=== PATIENT | female | born 1960 | race Caucasian/White ===

== ENCOUNTER → 2016-05-07 | Outpatient (CLI) | payer BC ==
--- NOTE | 2016-05-07 16:19 | DI ---
XR FOOT COMPLETE MIN 3VW WB,05/07/2016 2:06 PM: Clinical History: Right foot pain. Previous Exam: February 21, 2016 Findings: Weightbearing 3 views of the right foot are obtained, and demonstrate postsurgical changes consistent with osteotomies of the distal second and third proximal phalanges. There are stable fusion device is noted. There is no fracture. There has been decreased swelling. Impression: Improvement in soft tissue swelling otherwise unremarkable.
== END ==
LOC: MOB RAD 14:07
PROVIDERS: ATTEND Podiatrist Foot & Ankle Surgery
DX: Z47.89 Encounter for other orthopedic aftercare (principal); M79.671 Pain in right foot; Z98.1 Arthrodesis status
CPT/HCPCS: 73630

== ENCOUNTER → 2016-05-26 | Outpatient (CLI) | payer BC ==
[2016-05-26 09:52] LABS: BLOOD UREA NITROGEN 14 mg/dL (7-22); BUN/CREATININE RATIO 23.33 (6-20); CALCIUM 9.7 mg/dL (8.7-10.7); CHLORIDE 108 meq/L (98-112); CREATININE 0.6 mg/dL (0.50-1.20); EST GLOMERULAR FILTRATION > 60 (>60 ml/min/1.73m(2)); GLUCOSE 74 mg/dL (78-110); PHOSPHORUS 2.9 mg/dl (2.4-4.3); POTASSIUM 3.9 meq/L (3.8-5.2); SODIUM 143 meq/L (135-145)
== END ==
LOC: LAB 09:26
PROVIDERS: ATTEND Family Medicine
DX: M81.0 Age-related osteoporosis without current pathological fracture (principal)
CPT/HCPCS: 36415; 80048; 83735; 84100

== ENCOUNTER → 2016-07-16 | Outpatient (CLI) | payer BC ==
[2016-07-16 06:43] LABS: BASOPHILS # (AUTO) 0.03 10*3/UL; BASOPHILS % (AUTO) 0.6 % (0-1); EOSINOPHILS % (AUTO) 1.9 % (0-8); HEMATOCRIT 40.8 % (37.0-47.0); HEMOGLOBIN 13.9 g/dL (12.0-16.0); LYMPHOCYTES # (AUTO) 1.86 10*3/uL; MEAN CORPUSCULAR HEMOGLOBIN 31.8 PG (27-31); MEAN CORPUSCULAR HGB CONC 34.1 g/dL (33-37); MEAN CORPUSCULAR VOLUME 93.4 FL (81-99); MEAN PLATELET VOLUME 9.5 FL (7.4-12.2); MONOCYTES # (AUTO) 0.46 10*3/UL (0.3-0.8); MONOCYTES % (AUTO) 8.9 % (5-15); NEUTROPHILS # (AUTO) 2.73 10*3/UL; NEUTROPHILS % (AUTO) 52.6 % (50-80); RED BLOOD COUNT 4.37 10^6/uL (4.20-5.40)
[2016-07-16 06:56] LABS: BLOOD UREA NITROGEN 15 mg/dL (7-22); CALCIUM 9.5 mg/dL (8.7-10.7); CHOL/HDL RATIO 3.16 RATIO (0-4.0); EST GLOMERULAR FILTRATION > 60 (>60 ml/min/1.73m(2)); HDL CHOLESTEROL 56 mg/dL (40-150); PHOSPHORUS 3.5 mg/dl (2.4-4.3); SERUM ALBUMIN 4.3 g/dL (3.5-4.8); SERUM CHOLESTEROL 177 mg/dL (120-200)
[2016-07-16 06:56] LABS: PLATELET MORPHOLOGY COMMENT NORMAL MORPHOLOGY (NORM); RBC MORPHOLOGY COMMENT NORMAL MORPHOLOGY (NORM); WBC MORPHOLOGY COMMENT NORMAL MORPHOLOGY (NORM)
[2016-07-16 07:13] LABS: HEMOGLOBIN A1C 5.09 % (4.2-6.0)
[2016-07-16 16:32] LABS: FREE T4 (FREE THYROXINE) 1.29 ng/dL (0.93-1.71)
== END ==
LOC: LAB 06:31
PROVIDERS: ATTEND Family Medicine
DX: E03.9 Hypothyroidism, unspecified (principal); E78.1 Pure hyperglyceridemia; K21.9 Gastro-esophageal reflux disease without esophagitis; K57.33 Diverticulitis of large intestine without perforation or abscess with bleeding; Z01.89 Encounter for other specified special examinations; M81.0 Age-related osteoporosis without current pathological fracture; R79.0 Abnormal level of blood mineral; F17.200 Nicotine dependence, unspecified, uncomplicated
CPT/HCPCS: 36415; 80053; 80061; 82306; 82728; 83036; 83540; 83550; 83735; 84100; 84439; 84443; 85025

== ENCOUNTER → 2016-08-06 | Outpatient (CLI) | payer BC ==
--- NOTE | 2016-08-06 11:51 | DI ---
XR FOOT COMPLETE MIN 3VW WB,08/06/2016 9:06 AM: Clinical History: Injury of left foot Previous Exam: None at this facility. Findings: 3 views of the left foot are obtained, and demonstrate mild degenerative changes of the first metatar sophalangeal joint. There is in these up the noted at the insertion of the plantar fascia and the Achilles tendon. Impression: Mild degenerative changes of the left first metatarsophalangeal joint otherwise unremarkable.
== END ==
LOC: MOB LAB 09:11
PROVIDERS: ATTEND Podiatrist Foot & Ankle Surgery
DX: S99.922A Unspecified injury of left foot, initial encounter (principal); M79.672 Pain in left foot; W20.8XXA Other cause of strike by thrown, projected or falling object, initial encounter; Y93.89 Activity, other specified
CPT/HCPCS: 73630

== ENCOUNTER 2016-09-23 10:55 | Emergency (ER) | payer BC ==
[2016-09-23] MEDS ORDERED: Sodium Chloride 0.9% 1,000 ML PRIMARY IV ONE (11:18)
[2016-09-23] MEDS ORDERED: NORMAL SALINE 10 ML SYRINGE FLUSH IVP PRN (11:18)
[2016-09-23] MEDS ORDERED: ONDANSETRON 4 MG/2 ML VIAL IVP ONE (11:18)
[2016-09-23] MEDS ORDERED: HYDROmorphone 2 MG/1 ML IVP ONE (11:19)
[2016-09-23 11:24] LABS: BASOPHILS # (AUTO) 0.06 10*3/UL; BASOPHILS % (AUTO) 1.1 % (0-1); EOSINOPHILS % (AUTO) 1.8 % (0-8); HEMATOCRIT 37.5 % (37.0-47.0); HEMOGLOBIN 12.6 g/dL (12.0-16.0); LYMPHOCYTES # (AUTO) 2.23 10*3/uL; MEAN CORPUSCULAR HEMOGLOBIN 31.5 PG (27-31); MEAN CORPUSCULAR HGB CONC 33.6 g/dL (33-37); MEAN CORPUSCULAR VOLUME 93.8 FL (81-99); MEAN PLATELET VOLUME 9.8 FL (7.4-12.2); MONOCYTES # (AUTO) 0.52 10*3/UL (0.3-0.8); MONOCYTES % (AUTO) 9.5 % (5-15); NEUTROPHILS # (AUTO) 2.55 10*3/UL; NEUTROPHILS % (AUTO) 46.6 % (50-80)
[2016-09-23 11:35] LABS: BLOOD UREA NITROGEN 14 mg/dL (7-22); BUN/CREATININE RATIO 23.33 (6-20); C-REACTIVE PROTEIN < 0.5 mg/dL (0.0-0.9); EST GLOMERULAR FILTRATION > 60 (>60 ml/min/1.73m(2)); LIPASE 113 IU/L (23-300); SERUM ALBUMIN 4.3 g/dL (3.5-4.8)
[2016-09-23 12:05] LABS: PLATELET MORPHOLOGY COMMENT NORMAL MORPHOLOGY (NORM); RBC MORPHOLOGY COMMENT NORMAL MORPHOLOGY (NORM); WBC MORPHOLOGY COMMENT NORMAL MORPHOLOGY (NORM)
[2016-09-23 12:54] VITALS: TEMP 96.6
--- NOTE | 2016-09-23 13:37 | DI ---
CT ABDOMEN SCAN WITH IV CONTRAST, 09/23/2016 11:18 AM : Clinical History: Abdominal pain. Previous Exam: None at this facility. Scans are performed from the lower lung bases through the liver and kidneys with IV contrast. 75 ml o f Isovue 300 was injected IV. No oral or rectal contrast was ordered. The lung bases are clear. The liver is normal. The gallbladder is grossly normal. There is no abnorma lity of the spleen, pancreas, and adrenal glands. Both kidneys are normal in size, shape, position an d contour. There is no hydronephrosis or hydroureter. No renal or ureteral calculi are present. There are no abnormal retrocrural or periaortic nodes. No ascites is present. READING: Normal CT abdomen scan. CT PELVIS SCAN WITH IV CONTRAST, 09/23/2016 11:18 AM: Clinical History: See above. Previous Exam: None at this facility. Scans are performed from just superior to the umbilicus to the symphysis pubis with IV contrast. This is the same bolus of contrast used for the CT scans of the abdomen. Scans through the lower abdomen and pelvis show no masses or abnormal fluid collections. There is no adenopathy. The appendix is normal. The small bowel, terminal ileum, and ileocecal valve are normal. The colon is also normal. There is a small umbilical hernia through which only mesenteric fat has her niated. The patient is status post hysterectomy and bilateral salpingo-oophorectomy. READING: Normal CT scan of the pelvis.
[2016-09-23 14:20] VITALS: RESP 14
--- NOTE | 2016-09-23 16:41 | PDOC ---
Abdomen/Flank HPI - General Chief Complaint: Abdomen Pain Stated Complaint: ABDOMINAL PAIN Date Seen by Provider: 09/23/16 Time Seen by Provider: 11:15 Source: POSITIVE: Patient Exam Limitations: POSITIVE: No limitations Nurse's Notes Reviewed & Considered: Yes - History of Present Illness Initial Comments: The patient is a 56-year-old male who presents to the emergency department with sudden onset of left lower quadrant abdominal pain. 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 This pain gradually intensified to the point where it is now a 9 or 10 out of 10. She has associated nausea however has not had any emesis yet. She was not having any pain prior to onset 20 minutes ago. She denies any urinary symptoms or recent change in bowel movements. She does have a history of diverticulitis for which she was hospitalized one year ago. She states that her current pain is similar to that. She has had previous hysterectomy/bilateral oophorectomy and denies any other abdominal surgeries. She did have a colonoscopy about a year ago as well. - Patient Home Medications Home Medications: Home Medications Calcium Carbonate/Vitamin D3 [Calcium 600 + Vit D 200 Tablet] 1 tab PO BID tab 08/14/14 Denosumab [Prolia] 60 mg SUBCUT Every 6 months #1 ml 11/08/15 Acetaminophen [Tylenol] 500 mg PO TID PRN tab 01/16/16 Ibuprofen 1 tab PO QID #30 tab 01/30/16 Ergocalciferol (Vitamin D2) [Vitamin D2] 1 cap PO 2XW #16 cap 07/21/16 Amoxicill/Clav 875/125mg [Augmentin 875/125mg] 1 each PO BID #14 tablet HYDROcodone/APAP 5/325 Tab [[place] 5/325 Tab] 1 each PO Q6H PRN #10 tablet Ondansetron [Zofran Odt] 8 mg PO Q6H PRN #6 tab.rapdis 09/23/16 - Patient Allergies Allergies/Adverse Reactions: Allergies Allergy/AdvReac Type Severity Reaction Status Date / Time morphine Allergy Severe HEADACHE Verified 09/23/16 11:10 Past Medical History - heen HEENT History: Denies History Cardiovascular History: Denies History Respiratory History: Other (please comment) Additional Respiratory History: PLEURISY NOT IN YEARS Gastrointestinal History: Denies History Genitourinary History: Denies History Endocrine History: Denies History Musculoskeletal History: Arthritis, Osteoporosis, Back Pain, Joint Pain Prosthesis or Implant: Yes (RIGHT KNEE SCREWS) Additional Musculoskeletal History: RIGHT FOOT PAIN Neurological History: Migraines Blood Disorders: Denies History Psychiatric History: Anxiety Disorders History of Sexually Transmitted Diseases: No Female Reproductive History: Denies History Obstetrical History: Denies History Cancer History: Denies History In Past Year Been Physically Harmed or Verbally Threatened: No History of MDRO: No History of Other Communicable Diseases: No Tobacco Use: Current Every Day Smoker Alcohol Use: None Substance Use Type: None Previous Surgical History: Yes Type / Date of Surgery: BILAT OOPHORECTOMY/C SECTION/ HYSTERECTOMY, BILAT CARPAL TUNNEL, ULNAR NERVER RELEASE, BILAT ELBOWS/COLONOSCOPY/RIGHT KNEE SCOPE X 2/ LEFT FOOT SURGERY Anesthesia Reactions: No Malignant Hyperthermia: No Significant Family History: COPD, Hypertension Past Medical History Reviewed: Reviewed - No Changes ROS - Limitations ROS Limitations: No Limitations Constitution: DENIES: Chills, Fever Cardiovascular: REPORTS: Denies Cardiac Symptoms Respiratory: REPORTS: Denies Resp Symptoms Neurological: REPORTS: Denies Neuro Symptoms Gastrointestinal: REPORTS: Abdominal Pain, Nausea. DENIES: Vomitting, Diarrhea , Black Stools, Bloody Stools, Constipation Musculoskeletal: REPORTS: Denies MS Symptoms Genitourinary: REPORTS: Denies Symptoms Eyes: REPORTS: Denies Symptoms ENT: REPORTS: Denies Symptoms Skin: DENIES: Rash Abdominal/Flank Pain PE - General Appearance General Appearance: POSITIVE: Alert, Cooperative, No Acute Distress, Other (She appears to be in pain) - HEENT HEENT: POSITIVE: Head Inspection Nml, Eyes Inspection Nml, Ears Inspection Nml - Neck Neck: POSITIVE: Normal Inspection - Respiratory Respiratory: POSITIVE: No Respiratory Distress, Breath Sounds Normal - Cardiovascular Cardiovascular: POSITIVE: Regular Rate and Rhythm, Heart Sounds Normal - Abdomen Abdomen: Soft: (All Quadrants), Normal Bowel Sounds: (All Quadrants), No Guarding: (All Quadrants), No Rebound: (All Quadrants) Additional Abdominal Details: She does have tenderness primarily in the left lower quadrant without guarding or rebound tenderness, no palpable mass, no CVA tenderness - Back Back: NEGATIVE: CVA Tenderness (L) - Skin Skin: POSITIVE: Intact, No Rash - Extremities Extremity: Normal Inspection: (All Extremities) Abdomen Progress - Results Reviewed by me Xrays/CTs/US Reviewed by me: Yes Discussed with Radiologist: Yes Radiology Findings: CT scan of the abdomen and pelvis reveals no acute findings per radiologist. Lab Results Reviewed: Yes Lab Results:: Laboratory Results 09/23/16 Range/Units 11:21 WBC 5.47 (4.8-10.8) 10^3/uL RBC 4.00 L (4.20-5.40) 10^6/uL Hgb 12.6 (12.0-16.0) g/dL Hct 37.5 (37.0-47.0) % MCV 93.8 (81-99) FL MCH 31.5 H (27-31) PG MCHC 33.6 (33-37) g/dL RDW Std Deviation 44.2 (39-50) fL RDW Coeff of Dorie 13.3 (11.5-14.5) % Plt Count 276 (140-350) 10*3/uL MPV 9.8 (7.4-12.2) FL Immature Gran % (Auto) 0.2 (0-5) % Neut % (Auto) 46.6 L (50-80) % Lymph % (Auto) 40.8 (10-50) % [place] % (Auto) 9.5 (5-15) % Eos % (Auto) 1.8 (0-8) % Baso % (Auto) 1.1 H (0-1) % Immature Gran # (Auto) 0.01 10*3/UL Neut # (Auto) 2.55 10*3/UL Lymph # (Auto) 2.23 10*3/uL [place] # (Auto) 0.52 (0.3-0.8) 10*3/UL Eos # (Auto) 0.10 10*3/UL Baso # (Auto) 0.06 10*3/UL WBC Morphology Comment Normal morphology (NORM) Plt Morphology Comment Normal morphology (NORM) RBC Morph Comment Normal morphology (NORM) Sodium 140 (135-145) meq/L Potassium 4.0 (3.8-5.2) meq/L Chloride 108 (98-112) meq/L Carbon Dioxide 23 (23-33) meq/L Anion Gap 9 (5-20) BUN 14 (7-22) mg/dL Creatinine 0.6 (0.50-1.20) mg/dL Estimated GFR > 60 (>60 ml/min/1.73m(2)) BUN/Creatinine Ratio 23.33 H (6-20) Glucose 86 (78-110) mg/dL Calculated Osmolality 289.0 (267-292) mOsm/kg Calcium 9.0 (8.7-10.7) mg/dL Total Bilirubin 0.6 (0.3-1.2) mg/dL AST 40 H (8-39) IU/L ALT 27 (9-52) IU/L Alkaline Phosphatase 41 (38-126) IU/L C-Reactive Protein < 0.5 (0.0-0.9) mg/dL Total Protein 6.9 (6.1-8.0) g/dL Albumin 4.3 (3.5-4.8) g/dL Globulin 2.6 (2.50-4.10) g/dL Albumin/Globulin Ratio 1.60 (1.3-2.0) mg/g Amylase 86 (30-110) U/L Lipase 113 (23-300) IU/L - Patient's Progress MDM / ED Course: On arrival the patient appeared quite uncomfortable rating her pain a 9 or 10 out of 10. She is allergic to morphine and received Dilaudid 1 mg IV as well as Zofran 4 mg IV. She had significant relief in pain. Her blood work is all essentially unremarkable and her CT scan shows no obvious acute findings per radiologist. She does present with left lower quadrant abdominal pain that is similar to pain she had associated with diverticulitis a year ago. Decision was made to treat her empirically for early diverticulitis with Augmentin 875 mg twice a day for 7 days. In addition she was given #10 [place] which she can take as needed for pain and was given Zofran as needed for nausea. She is advised return to the emergency room if she develops increased pain, vomiting or dehydration, fever, any worsening or change in symptoms. She is advised follow-up with primary care in 5-7 days. For the next 2 days. - Consult Counseled: POSITIVE: Patient, RE: Lab Results, RE: Radiology Results, RE: DX, RE : Need for F/U Patient Care Time - Estimated PCT Patient Care Time (In Minutes): 30 Vital Signs - Recent Vital Signs Vital Signs: Vital Signs (Last 8 hours) Temp Pulse Pulse Resp BP BP Pulse Ox 09/23/16 14:18 71 14 97/47 97 09/23/16 11:14 96.6 F L 78 20 108/86 95 - VS Reviewed Vital Signs Reviewed: Yes Discharge Clinical Impression: Abdominal pain Discharge Disposition: Discharged to Home Condition: Stable Prescriptions / Orders: Amoxicill/Clav 875/125mg [Augmentin 875/125mg] 1 each PO BID #14 tablet HYDROcodone/APAP 5/325 Tab [[place] 5/325 Tab] 1 each PO Q6H PRN #10 tablet PRN Reason: Pain Ondansetron [Zofran Odt] 8 mg PO Q6H PRN #6 tab.rapdis PRN Reason: Nausea / Vomiting Patient Instructions Given at Discharge: Acute Abdominal Pain (ED) Additional Instructions: The CAT scan of your abdomen did not show any obvious reason for your pain. There is no sign of obvious diverticulitis or bowel obstruction in your appendix appears normal. Your blood work was also essentially normal. It is still possible that this could be an early diverticulitis similar to last year. Because of this you have been started on antibiotics (Augmentin 875 mg twice a day for 7 days). In addition you been prescribed [place] 5/325 which he can take one every 6 hours as needed for pain. You are also given Zofran 8 mg every 6 hours as needed for nausea. Recommend bland diet for the next 24-48 hours. Return to the emergency room if increased pain, vomiting or dehydration , fever, any worsening or change in symptoms. Recommend follow-up with Dr. Carbajal in 5-7 days. Follow Up With: ELEANOR CARBAJAL [Primary Care Provider] -
== END 2016-09-23 13:06 | disposition home or self-care (01) ==
LOC: ER 10:55
DX: R10.32 Left lower quadrant pain (principal); R11.0 Nausea
CPT/HCPCS: 74177; 80053; 82150; 83690; 85025; 86140; 96374; 96375; 99283; J1170; J2405

== ENCOUNTER → 2016-10-29 | Outpatient (REF) | payer BC ==
--- NOTE | 2016-10-29 10:24 | DI ---
Clinical History: Annual Screening Previous Exam: October 29, 2015 Findings: CC and MLO views of both breasts are obtained, and demonstrate predominantly fatty replaced breast pa renchyma. Computer aided diagnostics were applied. There is no mass, suspicious cluster of microcalcifications nor areas of architectural distortion. Impression: Normal Mammogram BIRADS: 1: Negative mammogram Recommendations: Annual screening. Note: Breast examination has been discussed and encouraged, and the patient informed to return if the re is any new palpable abnormality in the interval between screening. Overall imaging assessment: Negative mammogram.
== END ==
LOC: MAMMO 08:25
PROVIDERS: ATTEND Family Medicine
DX: Z12.31 Encounter for screening mammogram for malignant neoplasm of breast (principal)
CPT/HCPCS: G0202

== ENCOUNTER 2017-01-25 10:01 | Observation (INO) ==
[2017-01-25] MEDS ORDERED: NORMAL SALINE 10 ML SYRINGE FLUSH IVP PRN ×2 (10:17→12:28)
--- NOTE | 2017-01-25 10:20 | EKG ---
[address] [address] Measurements Intervals [place] Rate: 85 P: 82 NM: 158 QRS: 68 QRSD: 89 T: 65 QT: 354 QTc: 396 Interpretive Statements SINUS RHYTHM Compared to ECG 02/11/2016 10:33:39 No significant changes Electronically Signed On 01-27-17 08:22:22 MST by Rl Campos MD [email or web address]
[2017-01-25] MEDS: Sodium Chloride 0.9% 1,000 ML PRIMARY IV ONE ×2 (10:22→12:45)
[2017-01-25 10:23] LABS: BASOPHILS # (AUTO) 0.03 10*3/UL; BASOPHILS % (AUTO) 0.5 % (0-1); EOSINOPHILS % (AUTO) 1.6 % (0-8); Hemoglobin [HGB] 14.2 g/dL (12.0-16.0); LYMPHOCYTES # (AUTO) 2.42 10*3/uL; MEAN CORPUSCULAR HEMOGLOBIN 31.9 PG (27-31); MEAN CORPUSCULAR HGB CONC 33.8 g/dL (33-37); MEAN CORPUSCULAR VOLUME 94.4 FL (81-99); MEAN PLATELET VOLUME 10.2 FL (7.4-12.2); NEUTROPHILS # (AUTO) 3.21 10*3/UL; NEUTROPHILS % (AUTO) 51.1 % (50-80); RED BLOOD COUNT 4.45 10^6/uL (4.20-5.40)
[2017-01-25] MEDS: ASPIRIN 81 MG (BABY) CHEWABLE TABLET PO ONE ×2 (10:25→12:46)
[2017-01-25] MEDS: NITROGLYCERIN 0.4 MG SL TAB (BOTTLE OF 3) SL PRN ×2 (10:27→11:23)
[2017-01-25 10:28] LABS: PLATELET MORPHOLOGY COMMENT NORMAL MORPHOLOGY (NORM); RBC MORPHOLOGY COMMENT NORMAL MORPHOLOGY (NORM); WBC MORPHOLOGY COMMENT NORMAL MORPHOLOGY (NORM)
[2017-01-25 10:29] LABS: BLOOD UREA NITROGEN 14 mg/dL (7-22); BUN/CREATININE RATIO 23.33 (6-20); SERUM ALBUMIN 4.7 g/dL (3.5-4.8)
--- NOTE | 2017-01-25 10:52 | DI ---
AP CHEST X-RAY, 01/25/2017 10:17 AM : Clinical History: Chest Pain. Previous Exam: 09/05/2011. There is no acute soft tissue or bony abnormality. Heart size is normal. There is no acute infiltrate or effusion. There are linear densities emanating from the right hilum and extending superiorly into the right upper lobe consistent with fibronodular stranding secondary to old inflammatory disease. T his was present on the previous study and has not changed. The right hilum is retracted slightly supe riorly secondary to this inflammatory change. The gerda and mediastinal structures are otherwise tal l. There are no pulmonary nodules. Readin. There is no acute infiltrate or effusion. 2. Old inflammatory disease involving the right upper lobe.
--- NOTE | 2017-01-25 11:33 | PDOC ---
HPI - History of Present Illness History of Present Illness: This very nice 56-year-old female who started having chest pain early this morning she does have a history of smoking but no previous coronary artery disease. Chest pain is resolved now to be admitted to rule out patient says she is very stressed out lately she has to go on vacation to the [facility] but has taken care of to grandkids which is she is trying to find babysitting help for pain does not radiate to arm jaw or neck but it feels tight. Past Medical History Medical History: Nothing of significance Surgical History: 1. History of previous hysterectomy for abnormal vagina bleeding. 2. History of knee surgeries before. 3 history of carpal tunnel surgeries Pertinent Family History: History of COPD, hypertension Tobacco Use: Current Every Day Smoker In the Past 12 Months, Have Used or Abuse Any of the Following Substance: None Medication / Allergies Home Medications: Home Medications Medication Instructions Recorded Confirmed Type Calcium Carbonate/Vitamin D3 1 tab PO BID tab 08/14/14 01/25/17 History [Calcium 600 + Vit D 200 Tablet] Denosumab [Prolia] 60 mg SUBCUT Every 6 months #1 ml 11/08/15 01/25/17 History Acetaminophen [Tylenol] 500 mg PO TID PRN tab 01/16/16 01/25/17 History Ibuprofen 1 tab PO QID #30 tab 01/30/16 01/25/17 Rx Ergocalciferol (Vitamin D2) 1 cap PO 2XW #16 cap 07/21/16 01/25/17 Rx [Vitamin D2] naproxen 500 mg tablet,delayed 500 mg PO BID PRN #60 tab 12/15/16 01/25/17 Rx release methylprednisolone 4 mg tablets in 1 dose pk PO PER PKG DIR #21 tab 12/29/1609/05 Rx a dose pack Allergies/Adverse Reactions: Allergies 3 Allergy/AdvReac Type Severity Reaction Status Date / Time morphine AdvReac Severe HEADACHE Verified 01/25/17 10:03 Review of Systems - Review of Systems All Systems: Reviewed & No Additional Complaints Except as Stated - Respiratory Respiratory: DENIES: Negative System Review, Cough, Sputum, Dyspnea At Rest, Dyspnea with Exertion, Pleuritic Pain, Hemoptysis, Wheezing, Other, See HPI - Cardiovascular Cardiovascular: REPORTS: Chest Pain - Gastrointestinal Gastrointestinal / Abdominal: DENIES: Negative System Review, Nausea, Vomiting, Diarrhea, Constipation, Abdominal Pain, Bloody Stool, Poor Appetite, Heartburn, Regurgitation, Bloating, Lactose Intolerance, Melena, Bright Red Blood per Rectum, Other, See HPI - Musculoskeletal Musculoskeletal: DENIES: Negative System Review, Back Pain, Neck Pain, Joint Swelling, Calf Pain, Muscle Pain, Cramping, Joint Pain - Hands, Joint Pain - Elbows, Joint Pain - Shoulders, Joint Pain - Hips, Joint Pain - Knees, Joint Pain - Feet, AM Stiffness, Other, See HPI - Psychiatric Psychiatric: REPORTS: Anxiety Exam - Vitals Vital Signs: Vital Signs Temperature 97.3 F Temperature Source Temporal Artery Scan Pulse Rate [Pulse Oximeter 101 Right] Respiratory Rate 20 Blood Pressure [Right Arm] 129/87 Pulse Ox 98 Oxygen Delivery Method Room Air Height 5 ft 2 in Weight 140 lb - General General Appearance: No Acute Distress, Cooperative - Head Head Exam: Normal Inspection, Normocephalic, Atraumatic - Eye Eye Exam: POSITIVE: Normal Appearance, PERRL, EOMI, No Scleral Icterus - Respiratory Respiratory Exam: POSITIVE: Clear to Auscultation - Bilaterally, Breathing Non Labored, Normal To Percussion, Normal to Percussion and Palpation - Cardiovascular Cardiovascular Exam: POSITIVE: RRR, No Murmur, No Clicks, No Gallops, No Rubs, PMI Non-Displaced - GI/Abdominal GI/Abdominal Exam: POSITIVE: Normal Bowel Sounds, Non Tender, Non Distended, Soft, No Masses, No Hepatomegaly, No Splenomegaly, No Organomegaly - Extremities Extremities Exam: POSITIVE: Normal Inspection, Full ROM, Normal Capillary Refill , No Clubbing Present, No Edema Present, No Cyanosis Present, Negative Radha's sign, Dosalis Pedis Pulses - Stong & Regular - Psychiatric Psychiatric Exam: POSITIVE: Normal Affect, Normal Mood, Anxious Results - Labs CBC and BMP: 01/25/17 10:21 01/25/17 10:21 Assessment and Plan - Patient Problems (1) Chest pain Current Visit: Yes Status: Acute Comment: I will order serial troponins and if negative Lexiscan stress test will be done repeat EKG and troponin are negative she did receive another nitroglycerin and pain is subsided Code(s): R07.9 - Chest pain, unspecified (2) Anxiety Current Visit: Yes Status: Acute Comment: When necessary Ativan Code(s): F41.9 - Anxiety disorder, unspecified
[2017-01-25] MEDS ORDERED: LORazepam 2 MG/1 ML VIAL IVP ONE (11:43)
--- NOTE | 2017-01-25 11:51 | PDOC ---
Chest Pain HPI - General Chief Complaint: Chest Pain Stated Complaint: CHEST PAIN Date Seen by Provider: 01/25/17 Time Seen by Provider: 10:03 Source: Patient Exam Limitations: POSITIVE: No limitations Treatment Prior to Arrival: REPORTS: None Nurse's Notes Reviewed & Considered: Yes - History of Present Illness Initial Comments: The patient is a 56-year-old female. She states that around 4 AM this morning she was getting ready for work after having just gotten out of bed, and she developed "chest pressure and tightness ". She describes the intensity of her chest pain as an 8 on a scale of 10. No radiation. She did states she had some associated nausea but no vomiting. No diaphoresis. No increase in pain with inspiration. No associated cough or fevers. Patient states she has no known history of cardiopulmonary problems. She's had a hysterectomy and some orthopedic surgery in the past. She smokes a half a pack of cigarettes per day and does not drink alcohol. Upon presentation to the emergency room at around 1003 she states that her symptoms are essentially unchanged. No history of previous episodes. She states that morphine makes her "feel yucky". She takes Naprosyn and Prilosec on a when necessary basis. She also takes calcium and Prolia twice a week. 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 Body Location Affected: REPORTS: Chest Timing: REPORTS: Constant Duration: 4-6 hours (Approximately 6 hours) Severity: Moderate Persistent/Worse since (date): 01/25/17 Persistent/Worse since (time): 04:00 Context: REPORTS: Activity (Just got out of bed and was getting ready for work) Quality: REPORTS: "Pain", Pressure, Other ("Tightness") Radiation: REPORTS: None Associated Symptoms: REPORTS: Nausea Modifying Factors: improves with: None Reported Similar Symptoms Previously: No Recently seen/treated/hospitalized: No Any Prior Injuries Related to Current Complaint?: No - Patient Home Medications Home Medications: Home Medications Calcium Carbonate/Vitamin D3 [Calcium 600 + Vit D 200 Tablet] 1 tab PO BID tab 08/14/14 Denosumab [Prolia] 60 mg SUBCUT Every 6 months #1 ml 11/08/15 Acetaminophen [Tylenol] 500 mg PO TID PRN tab 01/16/16 Ibuprofen 1 tab PO QID #30 tab 01/30/16 Ergocalciferol (Vitamin D2) [Vitamin D2] 1 cap PO 2XW #16 cap 07/21/16 naproxen 500 mg tablet,delayed release 500 mg PO BID PRN #60 tab 12/15/16 methylprednisolone 4 mg tablets in a dose pack 1 dose pk PO PER PKG DIR #21 tab 12/29/16 - Patient Allergies Allergies/Adverse Reactions: Allergies 3 Allergy/AdvReac Type Severity Reaction Status Date / Time morphine AdvReac Severe HEADACHE Verified 01/25/17 10:03 Past Medical History - heen HEENT History: Denies History Cardiovascular History: Denies History Respiratory History: Other (please comment) Additional Respiratory History: PLEURISY NOT IN YEARS Gastrointestinal History: Denies History Genitourinary History: Denies History Endocrine History: Denies History Musculoskeletal History: Arthritis, Osteoporosis, Back Pain, Joint Pain Prosthesis or Implant: Yes (RIGHT KNEE SCREWS) Additional Musculoskeletal History: RIGHT FOOT PAIN Neurological History: Migraines Blood Disorders: Denies History Psychiatric History: Anxiety Disorders History of Sexually Transmitted Diseases: No Cancer History: Denies History In Past Year Been Physically Harmed or Verbally Threatened: No History of MDRO: No History of Other Communicable Diseases: No Tobacco Use: Current Every Day Smoker Alcohol Use: None In the Past 12 Months, Have Used or Abuse Any Substance: None Previous Surgical History: Yes Type / Date of Surgery: BILAT OOPHORECTOMY/C SECTION/ HYSTERECTOMY, BILAT CARPAL TUNNEL, ULNAR NERVER RELEASE, BILAT ELBOWS/COLONOSCOPY/RIGHT KNEE SCOPE X 2/ LEFT FOOT SURGERY Anesthesia Reactions: No Malignant Hyperthermia: No Significant Family History: COPD, Hypertension Past Medical History Reviewed: Reviewed - No Changes ROS - Limitations ROS Limitations: No Limitations Constitution: REPORTS: Denies Symptoms Cardiovascular: REPORTS: Chest Pain Respiratory: REPORTS: Denies Resp Symptoms Neurological: REPORTS: Denies Neuro Symptoms Gastrointestinal: REPORTS: Denies GI Symptoms Endocrine: REPORTS: Denies Symptoms Musculoskeletal: REPORTS: Denies MS Symptoms Genitourinary: REPORTS: Denies Symptoms Eyes: REPORTS: Denies Symptoms ENT: REPORTS: Denies Symptoms Skin: REPORTS: Denies Skin Symptoms Lympathic: REPORTS: Denies Lympathic Symptoms Immunologic: POSITIVE: Denies Symptoms Psychiatric: POSITIVE: Denies Psych Symptoms Chest Pain PE - General Appearance General Appearance: REPORTS: Alert, Cooperative, No Acute Distress, No Evidence of Trauma - HEENT HEENT: POSITIVE: Head Inspection Nml, Eyes Inspection Nml, Ears Inspection Nml, Nose Inspection Nml, Oral/Dental Inspect. Nml, Pharynx Inspect. Nml, PERRL, EOMI - Neck Neck: REPORTS: Normal Inspection, No Carotid Bruit - Respiratory Respiratory: REPORTS: No Respiratory Distress, Breath Sounds Normal, Chest Non- Tender - Cardiovascular Cardiovascular: REPORTS: Regular Rate and Rhythm, Heart Sounds Normal, Equal Pulses, Strong Pulses, No Murmur, No Gallop, No Friction Rub, No JVD Peripheral Pulses: Radial (R): 2+, Radial (L): 2+ - Abdomen Abdomen: Soft: (All Quadrants), Normal Bowel Sounds: (All Quadrants), Denies Tenderness: (All Quadrants), No Splenomegaly: (All Quadrants), No Hepatomegaly: (All Quadrants), No Guarding: (All Quadrants), No Rebound: (All Quadrants), No Palpable Pulse: (All Quadrants), No Palpabale Mass: (All Quadrants), No Distention: (All Quadrants), No Rigidity: (All Quadrants) - Skin Skin: REPORTS: Intact, Normal For Race, Warm, Dry, No Rash - Extremities Extremity: Non-Tender: (All Extremities), Normal ROM: (All Extremities), Normal Inspection: (All Extremities) - Neurological / Psychological Neurological: POSITIVE: Oriented X3, harness 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 Lab Results Reviewed by Me: Yes (d-dimer negative, troponin negative) CBC and BMP: 01/25/17 10:21 01/25/17 10:21 EKG Interpreted/Reviewed By Me:: Yes (normal) EKG Interpretation:: POSITIVE: Normal Sinus Rhythm, Normal Rate, Normal Intervals, Normal Mereta, Normal QRS, Normal ST/T - Patient's Progress Pain Medication Addressed: POSITIVE: Yes (Patient given nitroglycerin 0.4 mg sublingual and patient reports that she has gotten good relief following this. Patient declines any other analgesia.) School/Work Release Addressed: POSITIVE: Not Applicable Re-Examine Time: 11:25 Re-Examine Comment: Patient comfortable in the emergency room. States chest pain is now minimal. Alternatives of treatment discussed with patient. Patient is admitted for further observation and evaluation and treatment as necessary. Status: POSITIVE: Improved, Re-Examined Quality Measure Initiative: CP/AMI: POSITIVE: EKG, ASA - Consult Consult (If Yes, Name of Consulting MD & Time Called): Yes (Dr. Zavala, hospitalist, [phone]) Consulting MD will see pt:: POSITIVE: [facility] Admit Counseled: POSITIVE: Patient, RE: Lab Results, RE: Radiology Results, RE: DX, RE : Need for F/U Patient Care Time - Estimated PCT Patient Care Time (In Minutes): 45 Vital Signs - Recent Vital Signs Vital Signs: Vital Signs (Last 8 hours) Temp Pulse Pulse Resp BP Pulse Ox 01/25/17 10:17 101 H 01/25/17 10:02 97.3 F 101 H 20 129/87 98 - VS Reviewed Vital Signs Reviewed: Yes Discharge Clinical Impression: Chest pain Discharge Disposition: Admit to Inpatient Condition: Fair Follow Up With: ELEANOR CARBAJAL [Primary Care Provider] - Date Decision to Admit to Inpatient: 01/25/17 Time Decision to Admit to Inpatient: 11:20
[2017-01-25] MEDS ORDERED: ACETAMINOPHEN 325 MG TABLET PO PRN (12:28)
[2017-01-25] MEDS ORDERED: CALCIUM CARBONATE 500 MG (TUMS) CHEWABLE TABLET PO PRN (12:28)
[2017-01-25] MEDS ORDERED: Non-Formulary Drug (Denosumab [Prolia] 60 MG) SUBCUT SCH (12:28)
[2017-01-25] MEDS ORDERED: ACETAMINOPHEN 325 MG TABLET PO SCH (12:28)
[2017-01-25] MEDS ORDERED: LIDOCAINE W/ SODIUM BICARB 0.5 ML SYR SUBD PRN (12:28)
[2017-01-25] MEDS ORDERED: NITROGLYCERIN 0.4 MG SL TAB (BOTTLE OF 3) SL PRN ×2 (13:26→13:30)
--- NOTE | 2017-01-25 13:42 | EKG ---
[address] [address] Measurements Intervals [place] Rate: 73 P: 84 VT: 189 QRS: 73 QRSD: 90 T: 109 QT: 405 QTc: 431 Interpretive Statements SINUS RHYTHM Compared to ECG 01/25/2017 10:11:16 No significant changes Electronically Signed On 01-27-17 08:23:01 MST by Rl Campos MD [email or web address]
[2017-01-25] MEDS ORDERED: LORazepam 1 MG TABLET PO ONE (15:45)
[2017-01-25] MEDS ORDERED: Sodium Chloride 0.9% 1,000 ML ONE (15:58)
[2017-01-25] MEDS: Calcium/Vit D 600mg/400u Tab 1 TAB TABLET PO SCH (20:11)
[2017-01-25] MEDS ORDERED: Sodium Chloride 0.9% 1,000 ML PRIMARY IV ONE (21:33)
[2017-01-26 06:54] LABS: BLOOD UREA NITROGEN 16 mg/dL (7-22); BUN/CREATININE RATIO 26.66 (6-20); CHOL/HDL RATIO 3.65 RATIO (0-4.0); SERUM ALBUMIN 3.3 g/dL (3.5-4.8); SERUM CHOLESTEROL 150 mg/dL (120-200)
[2017-01-26 07:00] VITALS: RESP 17
[2017-01-26] MEDS: Calcium/Vit D 600mg/400u Tab 1 TAB TABLET PO SCH (08:46)
[2017-01-26] MEDS ORDERED: ERGOCALCIFEROL 50,000 IU CAPSULE PO SCH (09:00)
--- NOTE | 2017-01-26 10:49 | STRESSTEST ---
[facility] Interpretive Statements This is a 56 YO female with family histoyr of CAD, smoker. presented with atypical chest pain. resting EKG NSR. ruled out for AK. [place] scan stress test done. stress component today. tolerated procedure well. Plan: images and review radiology report. [email or web address]
[2017-01-26 11:40] VITALS: BP 102/47; TEMP 97.5; O2SAT 95
--- NOTE | 2017-01-26 17:39 | DI ---
2 DAY LEXISCAN STRESS & REST MYOCARDIAL PERFUSION SCANS, 01/25/2017 12:28 PM : Clinical History: Chest pain. Smoker. Family history of coronary artery disease. Previous Exam: None at this facility. Monitoring Physician: Dr. Chris Salomon. Dose: Stress dose: 35 mCi on 01/26/2017. Rest dose: 36 mCi on 01/25/2017. Quantitative Analysis: [employer] program with low dose limited CT chest scan attenuation correctio n. Exam Quality: Excellent. Rejected Beats: Stress = 4%; Rest = 1%. HR: Stress = 56-79 b/m; Rest = 69-8 5 b/m. Left ventricular chamber sizes are normal at stress and rest. Transient ischemic dilatation ratio is 1.15 (normal Manuel TID <= 1.22; normal Lexiscan TID <= 1.33). Stress LVEF: 75%; rest LVEF: 76%. The n on-attenuated corrected stress and rest perfusion scans are normal. The attenuated corrected scans ar e also normal and show anatomic apical thinning. Stress and rest myocardial thickening and wall motio n are normal. Limited CT scans of the heart show calcifications in the proximal third of the LAD, the proximal portion of the left circumflex artery, and in the proximal half of the right coronary arter y. There are no lung nodules or enlarged nodes. Readin. Normal stress and rest left ventricular chamber size. Transient ischemic dilatation ratio is norm al at 1.15. 2. Normal stress and rest LVEF of 75%, and 76%, respectively. 3. Normal stress and rest myocardial perfusion, wall motion, and thickening. 4. Coronary artery disease manifested by loss calcifications in the proximal third of the LAD, the l eft circumflex artery, and the right coronary artery. No pulmonary nodules or adenopathy changes are identified.
--- NOTE | 2017-01-26 18:04 | DCSUMMARY ---
Hospitalization Summary Admit Date: 01/25/17 Discharge Date: 01/26/17 Primary Diagnosis:: atypical chest pain, likely anxiety related Hospital Course: This very pleasant 56-year-old female who has a known smoking history, half a pack per day, and family history of heart disease although it was beyond the age of 50. She does not have any hypertension, diabetes or cholesterol problems. Patient was admitted, chest pain resolved with some Ativan. Her troponins were negative and her cholesterol was well-controlled. She had a Lexiscan stress test done today. And it was negative for any stress or rest blood flow differences. However, there were some coronary calcifications in the left anterior descending, left circumflex artery, and right coronary artery. I did curbside cardiology on this, and they suggest that with nonocclusive coronary artery disease, the best thing to do his aspirin and statin therapy, albeit there is no evidence that statin therapy actually reduces coronary events in nonocclusive coronary artery disease. I discussed all this above with the patient, and she did have a history of a bleeding ulcer remotely, but it was fairly removed from today's history for the patient. I think she would benefit from enteric-coated aspirin daily, 81 mg. She does not really want to go on a statin at this time, but would like to continue diet control and I recommended retesting cholesterol in about 3 months. Overall, I think the best thing for this patient is to quit smoking and I discussed that with her. She will pick a quit date and go on a nicotine patch when she gets back from her vacation. No further complaints of chest pain, shortness breath, nausea or vomiting. Assessment and Plan: 1. As per discharge assessments noted 2. Disposition: Patient is discharged home. 3. Condition on discharge, stable and improved. 4. Diet: regular diet 5. Activities: resume normal activities, but quit smoking. 6. Follow-Up: 1. Dr. Shin in 1 week 7. Medications at the Time of Discharge: Home Medications Medication Instructions Recorded Confirmed Type Calcium Carbonate/Vitamin D3 1 tab PO BID tab 08/14/14 01/25/17 History [Calcium 600 + Vit D 200 Tablet] Denosumab [Prolia] 60 mg SUBCUT Every 6 months #1 ml 11/08/15 01/25/17 History Acetaminophen [Tylenol] 500 mg PO TID PRN tab 01/16/16 01/25/17 History Ibuprofen 1 tab PO QID #30 tab 01/30/16 01/25/17 Rx Ergocalciferol (Vitamin D2) 1 cap PO 2XW #16 cap 07/21/16 01/25/17 Rx [Vitamin D2] naproxen 500 mg tablet,delayed 500 mg PO BID PRN #60 tab 12/15/16 01/25/17 Rx release methylprednisolone 4 mg tablets in 1 dose pk PO PER PKG DIR #21 tab 12/29/1609/05 Rx a dose pack Aspirin EC 81 mg PO DAILY #30 tablet. 01/26/17 Rx Nicotine 14mg Patch [Nicoderm CQ 1 patch TD DAILY #20 patch 01/26/17 Rx 14mg Patch] 8. Time, care, counseling and coordination of care for this discharge is greater than 30 minutes. Exam - Vitals Vital Signs: Vital Signs Temperature 97.5 F Temperature Source Temporal Artery Scan Pulse Rate [Apical] 77 Pulse Rate [Pulse Oximeter 66 Right] Pulse Rate 64 Respiratory Rate 17 Blood Pressure [Right Arm] 102/47 Blood Pressure 99/64 Pulse Ox 95 Oxygen Delivery Method Room Air Height 5 ft 2 in Weight 145 lb 12.8 oz - General General Appearance: No Acute Distress, Cooperative - Head Head Exam: Normal Inspection, Normocephalic, Atraumatic - Eye Eye Exam: POSITIVE: No Scleral Icterus - Respiratory Respiratory Exam: POSITIVE: Clear to Auscultation - Bilaterally, Breathing Non Labored - Cardiovascular Cardiovascular Exam: POSITIVE: RRR, No Murmur, No Clicks, No Gallops, No Rubs, No JVD - GI/Abdominal GI/Abdominal Exam: POSITIVE: Normal Bowel Sounds, Non Tender, Non Distended, Soft - Extremities Extremities Exam: POSITIVE: No Clubbing Present, No Edema Present, No Cyanosis Present - Neurological Neurological Exam: POSITIVE: Alert, Oriented x 3, No Facial Droop, Speech Intact / Clear, Moves All Extremities Equally - Psychiatric Psychiatric Exam: POSITIVE: Normal Affect, Normal Mood, Anxious Data Perinent Studies: Laboratory Results 01/25/17 01/25/17 01/25/17 Range/Units 10:21 10:21 10:21 WBC 6.27 (4.8-10.8) 10^3/uL RBC 4.45 (4.20-5.40) 10^6/uL Hgb 14.2 (12.0-16.0) g/dL Hct 42.0 (37.0-47.0) % MCV 94.4 (81-99) FL MCH 31.9 H (27-31) PG MCHC 33.8 (33-37) g/dL RDW Std Deviation 44.0 (39-50) fL RDW Coeff of Dorie 13.1 (11.5-14.5) % Plt Count 282 (140-350) 10*3/uL MPV 10.2 (7.4-12.2) FL Immature Gran % (Auto) 0.2 (0-5) % Neut % (Auto) 51.1 (50-80) % Lymph % (Auto) 38.6 (10-50) % [place] % (Auto) 8.0 (5-15) % Eos % (Auto) 1.6 (0-8) % Baso % (Auto) 0.5 (0-1) % Immature Gran # (Auto) 0.01 10*3/UL Neut # (Auto) 3.21 10*3/UL Lymph # (Auto) 2.42 10*3/uL [place] # (Auto) 0.50 (0.3-0.8) 10*3/UL Eos # (Auto) 0.10 10*3/UL Baso # (Auto) 0.03 10*3/UL WBC Morphology Comment Normal morphology (NORM) Plt Morphology Comment Normal morphology (NORM) RBC Morph Comment Normal morphology (NORM) D-Dimer < 0.19 (0.00-0.59) mg/L Sodium 144 (135-145) meq/L Potassium 3.7 L (3.8-5.2) meq/L Chloride 104 (98-112) meq/L Carbon Dioxide 26 (23-33) meq/L Anion Gap 14 (5-20) BUN 14 (7-22) mg/dL Creatinine 0.6 (0.50-1.20) mg/dL Estimated GFR > 60 (>60 ml/min/1.73m(2)) BUN/Creatinine Ratio 23.33 H (6-20) Glucose 89 (78-110) mg/dL Calculated Osmolality 297.0 H (267-292) mOsm/kg Calcium 9.7 (8.7-10.7) mg/dL Total Bilirubin 0.6 (0.3-1.2) mg/dL AST 34 (8-39) IU/L ALT 25 (9-52) IU/L Alkaline Phosphatase 51 (38-126) IU/L CK-MB (CK-2) (0.00-5.00) NG/ML Troponin I (< 0.040) ng/mL Total Protein 7.8 (6.1-8.0) g/dL Albumin 4.7 (3.5-4.8) g/dL Globulin 3.1 (2.50-4.10) g/dL Albumin/Globulin Ratio 1.50 (1.3-2.0) mg/g Triglycerides (44-200) mg/dL Cholesterol (120-200) mg/dL LDL Cholesterol, Calc mg/dL VLDL Cholesterol (0-40) mg/dL HDL Cholesterol (40-150) mg/dL Cholesterol/HDL Ratio (0-4.0) RATIO TSH (0.2700-4.2000) uIU/mL Free T4 (0.93-1.71) ng/dL 01/25/17 01/25/17 01/25/17 Range/Units 10:21 12:59 14:12 WBC (4.8-10.8) 10^3/uL RBC (4.20-5.40) 10^6/uL Hgb (12.0-16.0) g/dL Hct (37.0-47.0) % MCV (81-99) FL MCH (27-31) PG MCHC (33-37) g/dL RDW Std Deviation (39-50) fL RDW Coeff of Dorie (11.5-14.5) % Plt Count (140-350) 10*3/uL MPV (7.4-12.2) FL Immature Gran % (Auto) (0-5) % Neut % (Auto) (50-80) % Lymph % (Auto) (10-50) % [place] % (Auto) (5-15) % Eos % (Auto) (0-8) % Baso % (Auto) (0-1) % Immature Gran # (Auto) 10*3/UL Neut # (Auto) 10*3/UL Lymph # (Auto) 10*3/uL [place] # (Auto) (0.3-0.8) 10*3/UL Eos # (Auto) 10*3/UL Baso # (Auto) 10*3/UL WBC Morphology Comment (NORM) Plt Morphology Comment (NORM) RBC Morph Comment (NORM) D-Dimer (0.00-0.59) mg/L Sodium (135-145) meq/L Potassium (3.8-5.2) meq/L Chloride (98-112) meq/L Carbon Dioxide (23-33) meq/L Anion Gap (5-20) BUN (7-22) mg/dL Creatinine (0.50-1.20) mg/dL Estimated GFR (>60 ml/min/1.73m(2)) BUN/Creatinine Ratio (6-20) Glucose (78-110) mg/dL Calculated Osmolality (267-292) mOsm/kg Calcium (8.7-10.7) mg/dL Total Bilirubin (0.3-1.2) mg/dL AST (8-39) IU/L ALT (9-52) IU/L Alkaline Phosphatase (38-126) IU/L CK-MB (CK-2) 0.89 (0.00-5.00) NG/ML Troponin I < 0.012 < 0.012 < 0.012 (< 0.040) ng/mL Total Protein (6.1-8.0) g/dL Albumin (3.5-4.8) g/dL Globulin (2.50-4.10) g/dL Albumin/Globulin Ratio (1.3-2.0) mg/g Triglycerides (44-200) mg/dL Cholesterol (120-200) mg/dL LDL Cholesterol, Calc mg/dL VLDL Cholesterol (0-40) mg/dL HDL Cholesterol (40-150) mg/dL Cholesterol/HDL Ratio (0-4.0) RATIO TSH (0.2700-4.2000) uIU/mL Free T4 (0.93-1.71) ng/dL 01/25/17 01/26/17 01/26/17 Range/Units 18:18 00:20 06:17 WBC (4.8-10.8) 10^3/uL RBC (4.20-5.40) 10^6/uL Hgb (12.0-16.0) g/dL Hct (37.0-47.0) % MCV (81-99) FL MCH (27-31) PG MCHC (33-37) g/dL RDW Std Deviation (39-50) fL RDW Coeff of Dorie (11.5-14.5) % Plt Count (140-350) 10*3/uL MPV (7.4-12.2) FL Immature Gran % (Auto) (0-5) % Neut % (Auto) (50-80) % Lymph % (Auto) (10-50) % [place] % (Auto) (5-15) % Eos % (Auto) (0-8) % Baso % (Auto) (0-1) % Immature Gran # (Auto) 10*3/UL Neut # (Auto) 10*3/UL Lymph # (Auto) 10*3/uL [place] # (Auto) (0.3-0.8) 10*3/UL Eos # (Auto) 10*3/UL Baso # (Auto) 10*3/UL WBC Morphology Comment (NORM) Plt Morphology Comment (NORM) RBC Morph Comment (NORM) D-Dimer < 0.19 (0.00-0.59) mg/L Sodium (135-145) meq/L Potassium (3.8-5.2) meq/L Chloride (98-112) meq/L Carbon Dioxide (23-33) meq/L Anion Gap (5-20) BUN (7-22) mg/dL Creatinine (0.50-1.20) mg/dL Estimated GFR (>60 ml/min/1.73m(2)) BUN/Creatinine Ratio (6-20) Glucose (78-110) mg/dL Calculated Osmolality (267-292) mOsm/kg Calcium (8.7-10.7) mg/dL Total Bilirubin (0.3-1.2) mg/dL AST (8-39) IU/L ALT (9-52) IU/L Alkaline Phosphatase (38-126) IU/L CK-MB (CK-2) (0.00-5.00) NG/ML Troponin I < 0.012 < 0.012 (< 0.040) ng/mL Total Protein (6.1-8.0) g/dL Albumin (3.5-4.8) g/dL Globulin (2.50-4.10) g/dL Albumin/Globulin Ratio (1.3-2.0) mg/g Triglycerides (44-200) mg/dL Cholesterol (120-200) mg/dL LDL Cholesterol, Calc mg/dL VLDL Cholesterol (0-40) mg/dL HDL Cholesterol (40-150) mg/dL Cholesterol/HDL Ratio (0-4.0) RATIO TSH (0.2700-4.2000) uIU/mL Free T4 (0.93-1.71) ng/dL 01/26/17 01/26/17 Range/Units 06:17 06:17 WBC (4.8-10.8) 10^3/uL RBC (4.20-5.40) 10^6/uL Hgb (12.0-16.0) g/dL Hct (37.0-47.0) % MCV (81-99) FL MCH (27-31) PG MCHC (33-37) g/dL RDW Std Deviation (39-50) fL RDW Coeff of Dorie (11.5-14.5) % Plt Count (140-350) 10*3/uL MPV (7.4-12.2) FL Immature Gran % (Auto) (0-5) % Neut % (Auto) (50-80) % Lymph % (Auto) (10-50) % [place] % (Auto) (5-15) % Eos % (Auto) (0-8) % Baso % (Auto) (0-1) % Immature Gran # (Auto) 10*3/UL Neut # (Auto) 10*3/UL Lymph # (Auto) 10*3/uL [place] # (Auto) (0.3-0.8) 10*3/UL Eos # (Auto) 10*3/UL Baso # (Auto) 10*3/UL WBC Morphology Comment (NORM) Plt Morphology Comment (NORM) RBC Morph Comment (NORM) D-Dimer (0.00-0.59) mg/L Sodium 142 (135-145) meq/L Potassium 4.5 (3.8-5.2) meq/L Chloride 110 (98-112) meq/L Carbon Dioxide 22 L (23-33) meq/L Anion Gap 10 (5-20) BUN 16 (7-22) mg/dL Creatinine 0.6 (0.50-1.20) mg/dL Estimated GFR > 60 (>60 ml/min/1.73m(2)) BUN/Creatinine Ratio 26.66 H (6-20) Glucose 89 (78-110) mg/dL Calculated Osmolality 293.0 H (267-292) mOsm/kg Calcium 8.7 (8.7-10.7) mg/dL Total Bilirubin 0.3 (0.3-1.2) mg/dL AST 19 (8-39) IU/L ALT 22 (9-52) IU/L Alkaline Phosphatase 39 (38-126) IU/L CK-MB (CK-2) (0.00-5.00) NG/ML Troponin I (< 0.040) ng/mL Total Protein 5.8 L (6.1-8.0) g/dL Albumin 3.3 L (3.5-4.8) g/dL Globulin 2.5 (2.50-4.10) g/dL Albumin/Globulin Ratio 1.30 (1.3-2.0) mg/g Triglycerides 66 (44-200) mg/dL Cholesterol 150 (120-200) mg/dL LDL Cholesterol, Calc 95.800 mg/dL VLDL Cholesterol 13 (0-40) mg/dL HDL Cholesterol 41 (40-150) mg/dL Cholesterol/HDL Ratio 3.65 (0-4.0) RATIO TSH 2.90 (0.2700-4.2000) uIU/mL Free T4 1.18 (0.93-1.71) ng/dL [address] [facility] [place] [address] PH: DD: [phone] FAX: [phone] ~DIAGNOSTIC IMAGING REPORT~ Patient: SALTY GARSIA : 1960 Sex: F Age: 56 Exam Name: DC Myocardial Multi-Spect Exam Date: 01/25/17 Report # : [id number] CPT Code: 14298 EMR/MR #: [id number] Ordering: ELLIOT SALOMON Admiting: ELLIOT SALOMON MD. Primary: Kishor Shin MD Attending: ELLIOT SALOMON MD. Signed 2 DAY LEXISCAN STRESS & REST MYOCARDIAL PERFUSION SCANS, 01/25/2017 12:28 PM : Clinical History: Chest pain. Smoker. Family history of coronary artery disease. Previous Exam: None at this facility. Monitoring Physician: Dr. Elliot Salomon. Dose: Stress dose: 35 mCi on 01/26/2017. Rest dose: 36 mCi on 01/25/2017. Quantitative Analysis: [employer] program with low dose limited CT chest scan attenuation correction. Exam Quality: Excellent. Rejected Beats: Stress = 4%; Rest = 1%. HR: Stress = 56-79 b/m; Rest = 69-85 b/m. Left ventricular chamber sizes are normal at stress and rest. Transient ischemic dilatation ratio is 1.15 (normal Manuel TID <= 1.22; normal Lexiscan TID <= 1.33). Stress LVEF: 75%; rest LVEF: 76%. The non-attenuated corrected stress and rest perfusion scans are normal. The attenuated corrected scans are also normal and show anatomic apical thinning. Stress and rest myocardial thickening and wall motion are normal. Limited CT scans of the heart show calcifications in the proximal third of the LAD, the proximal portion of the left circumflex artery, and in the proximal half of the right coronary artery. There are no lung nodules or enlarged nodes. Readin. Normal stress and rest left ventricular chamber size. Transient ischemic dilatation ratio is normal at 1.15. 2. Normal stress and rest LVEF of 75%, and 76%, respectively. 3. Normal stress and rest myocardial perfusion, wall motion, and thickening. 4. Coronary artery disease manifested by loss calcifications in the proximal third of the LAD, the left circumflex artery, and the right coronary artery. No pulmonary nodules or adenopathy changes are identified. Dictated By: 01/26/17 1506 SAHARA AUGUSTE MD. Signed By: 01/26/17 [id number] SAHARA AUGUSTE MD. [address] [facility] [place] [address] PH: DD: [phone] FAX: [phone] ~DIAGNOSTIC IMAGING REPORT~ Patient: SALTY GARSIA : 1960 Sex: F Age: 56 Exam Name: XR CXR 1VW Exam Date: 01/25/17 Report # : [id number] CPT Code: 03107 EMR/MR #: [id number] Ordering: NICKIE WESTBROOK Admiting: Primary: Kishor Shin MD Attending: Signed AP CHEST X-RAY, 01/25/2017 10:17 AM : Clinical History: Chest Pain. Previous Exam: 09/05/2011. There is no acute soft tissue or bony abnormality. Heart size is normal. There is no acute infiltrate or effusion. There are linear densities emanating from the right hilum and extending superiorly into the right upper lobe consistent with fibronodular stranding secondary to old inflammatory disease. This was present on the previous study and has not changed. The right hilum is retracted slightly superiorly secondary to this inflammatory change. The gerda and mediastinal structures are otherwise normal. There are no pulmonary nodules. Readin. There is no acute infiltrate or effusion. 2. Old inflammatory disease involving the right upper lobe. Patient Problems - Patient Problem List (1) Chest pain Current Visit: Yes Status: Resolved Code(s): R07.9 - Chest pain, unspecified Category: Medical (2) Anxiety Current Visit: Yes Status: Resolved Code(s): F41.9 - Anxiety disorder, unspecified Category: Medical
== END 2017-01-26 18:18 | disposition home or self-care (01) ==
LOC: ER 10:01 → MED/SURG 10:01
PROVIDERS: ADMIT Internal Medicine; ATTEND Internal Medicine